=== PATIENT | female | born 1955 | race Caucasian/White ===

== ENCOUNTER 2016-10-08 13:41 | Inpatient (IN) | payer BC, MEDICAID ==
[~2016-10-08] VITALS: Ht 165.1 cm; Wt 73.2 kg
[~2016-10-08 13:41] MED LIST: ALPR2TAB95 PO; LEXAPRO; THYROXINE
[2016-10-08 14:15] LABS: Basophils # (auto) 0 uL; Basophils % (auto) 0.2 % (0.0-2.0); CONDITION Y; Eosinophils # (auto) 0.1 uL; Eosinophils % (auto) 1.4 % (0.0-7.0); Hematocrit 40.6 % (36.0-46.0); Hemoglobin 13.8 g/dL (12.2-16.2); Lymphocytes # (auto) 1.4 uL; Lymphocytes % (auto) 13.3 % (10.0-50.0); Mean Corpuscular Hemoglobin 31.6 pg (28.0-32.0); Mean Corpuscular Volume 92.8 fL (80.0-100.0); Monocytes # (auto) 0.6 uL; Monocytes % (auto) 5.7 % (0.0-12.0); Neutrophils # (auto) 8.4 uL; Neutrophils % (auto) 79.4 % (37.0-80.0); Platelet Count (auto) 286 10^3/uL (140-450); Red Cell Distribution Width 14.4 % (11.6-16.0); White Blood Cell 10.6 10^3/uL (4.4-10.8)
[2016-10-08 14:19] LABS: Urine Bilirubin Negative (Negative); Urine Blood Negative /uL (Negative); Urine Color Yellow (Yellow); Urine Glucose Normal (Normal); Urine Ketone Negative (Negative); Urine Mucus FEW (None Seen); Urine Nitrite Negative (Negative); Urine RBC <1 /hpf (0 - 4); Urine Squamous Epithelial Cell FEW /hpf (<5); Urine Urobilinogen Normal (Negative); Urine pH 6.5 (5.0-8.0)
[2016-10-08 14:24] LABS: Albumin 3.7 g/dL (3.4-5.0); BUN/Creatinine Ratio 12.3; Calcium 8.7 mg/dL (8.5-10.1); Potassium 3.9 mmol/L (3.5-5.1)
[2016-10-08 14:29] LABS: Bilirubin, Total 0.6 mg/dL (0.2-1.0); Total Protein 7.7 g/dL (6.4-8.2)
[2016-10-08] MEDS ORDERED: PANTOPRAZOLE 40 MG/10 ML VIAL IV STA (15:21)
[2016-10-08] MEDS ORDERED: SODIUM CHLORIDE 0.9% 500 ML IVB ONE (15:21)
[2016-10-08] MEDS ORDERED: IOHEXOL 300 MG/ML 100ML BOTTLE IJ ONE (15:27)
[2016-10-08] MEDS ORDERED: ONDANSETRON HCL 4 MG/2 ML VIAL IV ONE (15:30)
[2016-10-08] MEDS ORDERED: HYDROmorphone HCL 2 MG/ML VL IV ONE (15:30)
[2016-10-08] MEDS ORDERED: metroNIDAZOLE 500MG/100ML 100 ML IV ONE (17:45)
[2016-10-08] MEDS: SODIUM CHLORIDE 0.9% 1,000 ML IV SCH (17:48)
[2016-10-08] MEDS ORDERED: ACETAMINOPHEN 500 MG TAB PO PRN (18:00)
[2016-10-08] MEDS ORDERED: MORPHINE SULFATE 4 MG/ML SYRG IV PRN (18:00)
[2016-10-08] MEDS ORDERED: PROMETHAZINE HCL 25 MG/ML 1ML IV PRN (18:00)
[2016-10-08] MEDS ORDERED: TEMAZEPAM 15 MG CAP PO PRN (18:00)
[2016-10-08] MEDS ORDERED: MORPHINE SULF INJ 2 MG/ML SYRINGE 1ML IV PRN (18:00)
[2016-10-08] MEDS ORDERED: NITROGLYCERIN 0.4 MG SL TAB SL PRN (18:00)
[2016-10-08] MEDS ORDERED: ENOXAPARIN SOD 40 MG/0.4 ML SYRINGE SC ONE (18:00)
[2016-10-08] MEDS ORDERED: LORazepam 0.5 MG TAB PO PRN (18:00)
[2016-10-08] MEDS: metroNIDAZOLE 500MG/100ML 100 ML IV SCH ×2 (18:00→23:44)
[2016-10-08] MEDS ORDERED: cefTRIAXone 1GM/50ML D5W 50 ML IV ONE (18:00)
[2016-10-08] MEDS: FAMOTIDINE 20 MG TAB PO SCH (21:20)
[2016-10-08] MEDS: HYDROcodone-ACET 5/325MG TAB PO PRN (21:20)
[2016-10-08 22:00] VITALS: BP 107/68
[2016-10-09] MEDS: SODIUM CHLORIDE 0.9% 1,000 ML IV SCH ×2 (03:48→14:05)
[2016-10-09 05:00] VITALS: BP 99/65
[2016-10-09] MEDS: metroNIDAZOLE 500MG/100ML 100 ML IV SCH ×3 (06:04→19:07)
[2016-10-09] MEDS: HYDROcodone-ACET 5/325MG TAB PO PRN (06:20)
[2016-10-09] MEDS ORDERED: ESCI10TA53 PO (06:49)
[2016-10-09] MEDS ORDERED: LEV50T PO (06:49)
[2016-10-09] MEDS ORDERED: ALPR1TAB PO (06:49)
[2016-10-09 08:20] VITALS: BP 80/47
[2016-10-09] MEDS ORDERED: cefTRIAXone 1GM/50ML D5W 50 ML IV SCH (09:00)
[2016-10-09] MEDS: FAMOTIDINE 20 MG TAB PO SCH (09:39)
[2016-10-09] MEDS ORDERED: ENOXAPARIN SOD 40 MG/0.4 ML SYRINGE SC SCH (10:00)
[2016-10-09 12:32] VITALS: BP 89/60
[2016-10-09] MEDS ORDERED: METR500T PO (14:37)
[2016-10-09] MEDS ORDERED: HYDR-4663 PO (14:37)
[2016-10-09] MEDS ORDERED: LEVO500T21 PO (14:37)
[2016-10-09 15:50] VITALS: BP 89/60
[2016-10-09 16:16] VITALS: BP 96/88
== END 2016-10-09 21:26 | disposition home health service (06) | DRG 244 ==
LOC: ER 13:42 → TELE 13:43 → CENTRAL 19:30
PROVIDERS: ADMIT Internal Medicine; ATTEND Internal Medicine
DX: K57.32 Diverticulitis of large intestine without perforation or abscess without bleeding (principal); F32.9 Major depressive disorder, single episode, unspecified; E03.9 Hypothyroidism, unspecified; F41.9 Anxiety disorder, unspecified; Z85.3 Personal history of malignant neoplasm of breast; Z86.39 Personal history of other endocrine, nutritional and metabolic disease; Z90.710 Acquired absence of both cervix and uterus; Z90.89 Acquired absence of other organs
CPT/HCPCS: 36415; 74177; 80053; 81001; 84484; 85025; 93005; 94761; 96361; 96365; 96372; 96375; C9113; J0696; J2405; J3490

== ENCOUNTER 2016-11-22 14:09 | Emergency (ER) | payer MEDICAID ==
[~2016-11-22] VITALS: Ht 165.1 cm; Wt 70.3 kg
[~2016-11-22 14:09] MED LIST changes: +ESCI10TA53 PO; +HYDR-4683 PO; +LEV50T PO; +LEVO500T21 PO; +METR500T PO
[2016-11-22] MEDS ORDERED: SODIUM CHLORIDE 0.9% 1,000 ML IVB ONE (14:38)
[2016-11-22] MEDS ORDERED: diphenhdrAMINE HCL 50 MG/1 ML VL IV ONE ×2 (14:45→16:30)
[2016-11-22] MEDS ORDERED: methylPREDNISolone SOD SUCC 125 MG/2 ML VL IV ONE (14:45)
[2016-11-22 15:15] LABS: Basophils # (auto) 0.1 uL; Eosinophils # (auto) 0.2 uL; Eosinophils % (auto) 1.5 % (0.0-7.0); Hematocrit 35.8 % (36.0-46.0); Hemoglobin 12.1 g/dL (12.2-16.2); Lymphocytes # (auto) 1.7 uL; Lymphocytes % (auto) 16.8 % (10.0-50.0); Mean Corpuscular Hemoglobin 31.6 pg (28.0-32.0); Mean Corpuscular Hgb Conc. 33.8 g/dL (32.0-36.0); Mean Corpuscular Volume 93.4 fL (80.0-100.0); Monocytes # (auto) 0.4 uL; Monocytes % (auto) 4.1 % (0.0-12.0); Neutrophils # (auto) 7.8 uL; Neutrophils % (auto) 76.6 % (37.0-80.0); Nucleated Red Blood Cells % 0.4 %; Platelet Count (auto) 281 10^3/uL (140-450); Red Cell Distribution Width 14.1 % (11.8-14.3); White Blood Cell 10.2 10^3/uL (4.4-10.8)
[2016-11-22 15:31] VITALS: BP 132/89
[2016-11-22 15:35] LABS: Albumin 3.4 g/dL (3.4-5.0); BUN/Creatinine Ratio 23.3; Bilirubin, Total 0.3 mg/dL (0.2-1.0); Calcium 8.4 mg/dL (8.5-10.1); Potassium 3.6 mmol/L (3.5-5.1)
[2016-11-22 15:56] LABS: Urine Bilirubin Negative (Negative); Urine Blood Negative /uL (Negative); Urine Color Yellow (Yellow); Urine Glucose Normal (Normal); Urine Ketone Negative (Negative); Urine Nitrite Negative (Negative); Urine RBC 1 /hpf (0 - 4); Urine Squamous Epithelial Cell FEW /hpf (<5); Urine Urobilinogen Normal (Negative)
[2016-11-22] MEDS ORDERED: FAMOTIDINE (10MG/ML) 2ML VL IV ONE (16:30)
== END 2016-11-22 17:17 | disposition home or self-care (01) ==
LOC: ER 14:09
DX: R07.89 Other chest pain (principal); N39.0 Urinary tract infection, site not specified; T78.40XA Allergy, unspecified, initial encounter; E07.89 Other specified disorders of thyroid; Z90.710 Acquired absence of both cervix and uterus; Z90.89 Acquired absence of other organs; Z85.3 Personal history of malignant neoplasm of breast
CPT/HCPCS: 36415; 80053; 81001; 84484; 85025; 93005; 94761; 96361; 96374; 96375; 99285; J1200; J2930; J3490; J7030